=== PATIENT | female | born 1970 | race African-American/Black ===

== ENCOUNTER 2025-05-26 15:41 | Emergency (ER) | payer MEDICAID ==
[~2025-05-26] VITALS: Ht 167.6 cm; Wt 78.6 kg
[2025-05-26 15:46] VITALS: BP 120/89; PULSE 60; RESP 16; TEMP 98.2; O2SAT 98
[2025-05-26] MEDS ORDERED: PENI500T2 PO (18:47)
[2025-05-26] MEDS ORDERED: HYDR-4062 PO (18:47)
[2025-05-26] MEDS ORDERED: IBUP-1554 PO (18:47)
[2025-05-26] MEDS: IBUPROFEN 600 MG TABLET PO ONE (19:08)
[2025-05-26] MEDS: HYDROCODONE/ACETAMINOPHEN 5-325 MG TABLET PO ONE (19:08)
== END 2025-05-26 19:10 | disposition home or self-care (01) ==
LOC: EMS 15:44
DX: K04.7 Periapical abscess without sinus (principal); K08.89 Other specified disorders of teeth and supporting structures; I10 Essential (primary) hypertension; F17.210 Nicotine dependence, cigarettes, uncomplicated
CPT/HCPCS: 99283

== ENCOUNTER 2025-08-01 11:13 | Emergency (ER) | payer MEDICAID ==
[~2025-08-01] VITALS: Ht 167.6 cm; Wt 77.3 kg
[~2025-08-01 11:13] MED LIST: HYDR-4062 PO; IBUP-1554 PO; PENI500T2 PO
[2025-08-01 11:21] VITALS: TEMP 98.1
[2025-08-01 11:29] VITALS: BP 133/72; PULSE 83; RESP 16; O2SAT 99
[2025-08-01] MEDS ORDERED: AMOX-457 PO (12:44)
[2025-08-01] MEDS: KETOROLAC TROMETHAMINE 30 MG/ML VIAL IM ONE (12:51)
[2025-08-01] MEDS: LIDOCAINE 2% VISCOUS 15 ML SOLUTION UDCUP PO ONE (12:51)
[2025-08-01] MEDS: OxyCODONE HCL/ACETAMINOPHEN 5-325 MG TABLET PO ONE (13:18)
== END 2025-08-01 14:10 | disposition home or self-care (01) ==
LOC: EMS 11:19
DX: K04.7 Periapical abscess without sinus (principal); I10 Essential (primary) hypertension; F17.210 Nicotine dependence, cigarettes, uncomplicated; Z79.899 Other long term (current) drug therapy
CPT/HCPCS: 96372; 99283; J1885